=== PATIENT | female | born 1960 | race Caucasian/White ===

== ENCOUNTER → 2023-05-22 08:49 | Outpatient (REF) | payer BC, SELFPAY | LOC: WDC 08:49 | PROVIDERS: ATTENDING PHYSICIAN Physician Assistant Medical | DX: Z12.31 Encounter for screening mammogram for malignant neoplasm of breast (principal) | CPT/HCPCS: 77063; 77067 ==

== ENCOUNTER → 2024-05-26 09:00 | Outpatient (REF) | payer OTHER, SELFPAY | LOC: WDC 09:00 | PROVIDERS: ATTENDING PHYSICIAN Physician Assistant Medical | DX: Z12.31 Encounter for screening mammogram for malignant neoplasm of breast (principal) | CPT/HCPCS: 77063; 77067 ==

== ENCOUNTER 2024-06-25 06:22 | Day surgery (SDC) | payer OTHER, SELFPAY | END 2024-06-25 09:50 | disposition home or self-care (01) | LOC: GI 06:22 | PROVIDERS: ATTENDING PHYSICIAN Internal Medicine Gastroenterology | DX: Z12.11 Encounter for screening for malignant neoplasm of colon (principal); D12.0 Benign neoplasm of cecum; D12.2 Benign neoplasm of ascending colon; D12.3 Benign neoplasm of transverse colon; K63.5 Polyp of colon; K91.81 Other intraoperative complications of digestive system; K56.2 Volvulus; K62.1 Rectal polyp; Z86.0100 Personal history of colon polyps, unspecified; Z80.0 Family history of malignant neoplasm of digestive organs; K64.0 First degree hemorrhoids | CPT/HCPCS: 45385; 45380; 45381; 88305 ==

== ENCOUNTER 2025-01-28 08:21 | Inpatient (IN) | payer OTHER, SELFPAY ==
[2025-01-27] VITALS (17 sets, daily range): BP systolic 95–120; BP diastolic 52–82; BMI 29.9
[2025-01-27] MEDS: NITROSTAT (SUBLINGUAL) 0.4 MG SL ×2 (20:04→20:29)
[2025-01-27 20:13] LABS: Hematocrit 36.6 % (37.0-47.0); Hemoglobin 11.6 g/dL (12.0-16.0); Mean Corp Hgb Conc. 31.7 g/dL (33.0-37.0); Mean Corpuscular Volume 82.2 fL (81.0-99.0); Nucleated Red Blood Cells % 0 %; Platelet Count 305 10^3/uL (130-400); Red Cell Dist. Width 15.9 % (11.5-14.5)
--- NOTE | 2025-01-27 20:21 | ED.GENMED ---
History of Present Illness
General
Chief Complaint: Chest Pain
Source: patient
Exam Limitations: none
Time Seen by Provider: 01/27/25 20:07
Nursing documentation reviewed up to this point in time: agreed with
History of Present Illness
History of Present Illness:
Patient with history of hypertension and daily smoker, presents ED secondary to sudden onset of chest pain, while she was at home this afternoon around 2 PM watching TV. Chest pain described as pressure, with associated pressure in her upper back,
without any alleviating or exacerbating factors. Since onset, patient states that her chest pressure progressed became more severe, along with diaphoresis and shortness of breath. Patient was evaluated urgent care center with family called 911.
When paramedics arrived, initial EKG revealed possible ST segment elevation. Patient was given 325 mg aspirin. In addition, patient provided with 2 tablets of sublingual nitroglycerin, with improvement chest pain. At the time of evaluation ED,
patient reports 2 out of 10 chest pain, with improvement. Patient's recent travel history includes overseas travel to the [place] in November 2024. Denies leg pain or swelling. Denies previous history of chest pain. Denies history of blood
clots. Denies family history of heart disease. Denies recent illness. Denies recent change in medications or diet.
Review of Systems
Review of Systems
Allergies reviewed?: Yes
All Other Systems: ROS reviewed and negative except as documented in HPI and ROS
Constitutional: Reports no symptoms
Respiratory: Reports trouble breathing
Cardiac: Reports chest pain and diaphoresis
ABD/GI: Reports no symptoms; Denies nausea or vomiting
Musculoskeletal: Reports no symptoms
Skin: Reports no symptoms
Neurological: Reports no symptoms
Phy Exam
Physical Exam
Physical Exam:
Physical Exam
General: mild distress, not acutely ill. afebrile
Head: nc/at. eomi
Neck: supple. no meningeal signs.
Heart: s1/s2 regular rate and rhythm. no murmur
Lungs: no acute respiratory distress. clear bilaterally
Abdomen: normal bowel sounds. not tender.
Neuro: alert and oriented x 3. no focal neurological deficits
Skin: no rash
Psychiatric: well kept. interactive and cooperative
Extremities: LE b/l nonpitting edema. no calf tenderness.
Scores
Heart Score for Chest Pain Patients
STEMI patient?: No
History: Moderately Suspicious
ECG: Significant ST-Depression
Age: >/= 65 years
Risk Factors: 1 or 2 Risk Factors
Troponin: >1 - <3 x Normal Limit
Heart Score for Chest Pain Patients: 7
Heart Score Risk: 72.7 % MACE over next 6 weeks
Course
Orders/Labs/Results
Orders:
Orders
01/27/25 19:59
CXR [CR Chest Portable - 1 View] Stat
Comment:
Reason For Exam: chest pain
Reason Study Needs to be Portable: Unable to Transport
01/27/25 20:02
Nitroglycerin 100 mg/250 ml [Nitroglycerin Premix] 100 mg in 250 ml .ROUTE .STK-MED
01/27/25 20:05
Electrocardiogram (*1) Urgent
Reason for Study: Chest Pain
Cardiac Monitoring- Treatment ONCE
EKG- Treatment ONCE
IV Insert/Care/Rem.- Treatment PRN
01/27/25 20:06
Complete Blood Count/With Diff Urgent
Comprehensive Metabolic Panel Urgent
D-Dimer Urgent
Glycohemoglobin (HgbA1c) Urgent
NT-proBNP Urgent
Comment: ADD ON
PTT Urgent
Comment: ADD ON
Troponin I Urgent
01/27/25 20:07
Nitroglycerin Sublingual [Nitrostat (Sublingual)] 0.4 mg SL NOW STA
01/27/25 20:15
Heparin 4,000 units IV NOW STA
Heparin 61172 Units/250 ml 25,000 units in 250 ml IV PER PROTOCOL
Weight to be used for heparin protocol in kilograms (kg):: 81.5
Protocol:: Cardiac Tx/Acute Coronary
PTT Goal Range to be used:: PTT 73 to 111 seconds
Order type:: Initial
INITIAL Infusion Dose (UNITS/KG/hr) & then follow protocol:: 12 units/kg/hr
Infusion Dose in UNITS/hr & then follow protocol (UNITS/hr):: 1,000
INFUSION RATE in mL/hr & then follow protocol (mL/hr):: 10
PTT less than or equal to 64 seconds:: Increase rate by 200 units/hr (+ 2 mL/hr)
PTT 64.1 to 72.9 seconds:: Increase rate by 100 units/hr (+ 1 mL/hr)
PTT 73 to 111 seconds:: Target Range. No change in rate.
PTT 111.1 to 130.9 seconds:: Decrease rate by 100 units/hr (- 1 mL/hr)
PTT 131 to 199.9 seconds:: HOLD for 1 hr. Then decrease rate by 200 units/hr (- 2 mL/hr)
PTT greater than or equal to 200 seconds:: HOLD for 2 hrs & Notify Provider. Then decrease by 200 units/hr (-
2 mL/hr)
Lab follow-up:: Each change, PTT q6h until 2 consecutive are therapeutic. Then PTT
daily.
Nursing to Place Non Medication Order As Directed
Physician Order: PTT 6 hours after initial start of Heparin infusion
Above order entered?: Yes
01/27/25 20:16
Nitroglycerin Sublingual [Nitrostat (Sublingual)] 0.4 mg SL NOW STA
01/27/25 20:23
Ticagrelor [Brilinta] 180 mg PO ONCE ONE
01/27/25 20:30
Nitroglycerin 100 mg/250 ml [Nitroglycerin Premix] 100 mg in 250 ml IV PER PROTOCOL
Initial dose in mcg/min, then titrate:: 25
Titrate to keep:: Chest Pain Free
Titrate by mcg/min:: 5 mcg/min, may increase by 10 mcg/min if dose > 20 mcg/min
Frequency of titrations (minutes):: every 3-5 minutes
Maximum dose in mcg/min:: 200
Begin to taper infusion when:: Remained at goal for 2hrs
Taper by mcg/min:: 5 mcg/min
Frequency of taper (minutes) if patient maintains goal:: 30
Taper to off?: Yes
If infusion off & no longer maintaining goal:: Contact Provider
01/27/25 20:35
Ondansetron Injectable [Zofran] 4 mg IV NOW STA
01/27/25 20:36
Ondansetron Injectable [Zofran] 4 mg .ROUTE .STK-MED ONE
01/27/25 20:43
Morphine Sulfate 2 mg .ROUTE .STK-MED ONE
Morphine Sulfate 2 mg IV NOW STA
01/27/25 20:52
Electrocardiogram (*1) Urgent
Reason for Study: Chest Pain
EKG- Treatment ONCE
01/27/25 21:34
Metoprolol [Lopressor] 12.5 mg PO NOW STA
01/27/25 21:43
0.9% Sodium Chloride 250 ml [Nss] 250 ml IV BOLUS
01/27/25 21:47
Admit/Transfer Patient As Directed
Co-Sign Provider:
Level of Care: Observation services
Assign to:: IVU
Physician / Group: Irene Leone
Diagnosis: NSTEMI
PRN Pain Medication Management As Directed
May give lesser potent ordered pain med per pt: Yes
preference::
Protocol:: Medication orders for pain may be administered in a
manner that supports deferring to patient preference
when the pt is:
- Requesting an ordered lesser potent pain medication.
Least to most potent pain medications are defined
as: acetaminophen < NSAID < tramadol < opioids
(morphine, oxycodone, hydromorphone).
- Requesting a lesser dose of the same medication IF
ORDERED.
- Requesting a less intrusive route of administration
if both routes are prescribed by the provider (PO <
IV).
01/27/25 21:48
Code Status As Directed
Resuscitation Status: Full Code
01/27/25 23:45
Electrocardiogram (*1) Q3H
Reason for Study: Chest Pain
Comment: at admission and Q3H for total of 3, to be done with each troponin
Troponin I Q3H
Comment: at admit & Q3H for 3 total including ED draws, obtain ECG with each level
01/27/25 23:45
Echo 2D MMode Color/Doppler Routine
Reason for Study: chest pain
CARDIOLOGY CONSULT Routine
Consulting Provider: Odin Adam
Was physician already notified: Yes
Activity As Directed
Activity Level: Ambulate
INT (Intravenous Needle Therapy) As Directed
Comment: maintain peripheral IV access
Intake/ Output As Directed
Frequency: Per unit guidelines
Vital Signs As Directed
Frequency: q4h
Weight As Directed
Frequency: Once
Comment: on admission
Pulse Ox/spot Check [RESP] Routine
Quantity: 1
Special Instructions: on admission and then every shift if on oxygen
01/28/25 02:45
Electrocardiogram (*1) Q3H
Reason for Study: Chest Pain
Comment: at admission and Q3H for total of 3, to be done with each troponin
01/28/25 02:51
Cardiovascular Evaluation IN AM
PTT Urgent
Troponin I Q3H
Comment: at admit & Q3H for 3 total including ED draws, obtain ECG with each level
01/28/25 05:45
Electrocardiogram (*1) Q3H
Reason for Study: Chest Pain
Comment: at admission and Q3H for total of 3, to be done with each troponin
Troponin I Q3H
Comment: at admit & Q3H for 3 total including ED draws, obtain ECG with each level
01/28/25 Breakfast
NPO
Allow oral meds: Yes
Allow clear liquids: 4hrs prior to procedure
Comment: may have unrestricted clear liquid up to 4 hrs prior to scheduled procedure
Abnormal Lab Results
01/27/25
20:06
WBC 13.4 H 10^3/uL
(4.8-10.8)
Hgb 11.6 L g/dL
(12.0-16.0)
Hct 36.6 L %
(37.0-47.0)
MCH 26.1 L pg
(27.0-31.0)
MCHC 31.7 L g/dL
(33.0-37.0)
RDW 15.9 H %
(11.5-14.5)
Abs Immat Gran (auto) 0.1 H 10^3/uL
(0-0.05)
Absolute Neuts (auto) 8.3 H 10^3/uL
(1.4-6.5)
Absolute Lymphs (auto) 4.0 H 10^3/uL
(1.2-3.4)
Absolute Monos (auto) 0.8 H 10^3/uL
(0.1-0.6)
D-Dimer 0.54 H ug/mlFEU
(0.00-0.50)
BUN 21 H mg/dl
(7-17)
Glucose 145 H mg/dl
(70-99)
Troponin I 0.407 H* ng/ml
01/27/25 20:06
01/27/25 20:06
Vital Signs
Initial and Last Documented VS:
Initial Vital Signs
Pulse Resp BP Pulse Ox
73 18 99/52 94
01/27/25 19:56 01/27/25 19:56 01/27/25 19:56 01/27/25 19:56
Last Documented Vital Signs
Temp Pulse Resp BP Pulse Ox
98.4 F 70 14 89/63 98
01/27/25 23:45 01/28/25 01:30 01/28/25 00:01 01/28/25 01:30 01/28/25 00:01
MDM/Problems Addressed
MDM/Problems Addressed:
Prehospital EKG reviewed revealing minimal anterior lead ST segment elevation along with ST depression in inferior leads. Chest pain rapidly improved with nitroglycerin given prehospital. Repeat EKG upon arrival in the ED reveals normal ST
segment, but with continual ST depression on inferior leads. EKG reviewed by on-call Slotter Operator Helper attending, Dr. Garcia, via [place] text. Does not feel that EKG meets STEMI criteria for emergent cath at this time. However, does agree that patient's
presenting symptoms are concerning for ACS. As such, recommends appropriate treatment, including nitroglycerin infusion, Brilinta, along with heparin infusion. Dr. Garcia to be contacted again, if there are any clinical changes or EKG changes.
Otherwise, patient will be admitted to the hospitalist service for further evaluation and treatment.
Chest pain continues to improve, and resolved after morphine 2 mg IV. Initial troponin noted and discussed with Dr. Garcia. Plan to proceed with hospitalist admission for medical treatment tonight
Critical care statement: A total of 60 minutes of critical care time was provided for this patient. This includes management of unstable vital signs, evaluation of the patient at bedside, reviewing the patient's pertinent medical records, discussion
with consultants, review of old EKGs and review of pertinent medical records. This time with separate from time utilized to perform the aforementioned documented procedures
*Pulse Oximetry
SaO2: 94
Nasal Cannula flow liters per minute: 2
Patient hypoxic: no
*EKG
Interpreted by ED Provider?: Yes
EKG Intrepretation Date: 01/27/25
Heart Rate: 68
Rate: normal
Rhythm: sinus
[place]: normal axis
Interval: normal interval
Ischemia: ST depression
*Critical Care Note
Total Time (30-74mins, 75-104mins- exclusive of procedures): 60 min
ED Attending Note
-
Portions of this chart may have been created with voice recognition software.� Occasional wrong word or��sound alike� substitutions may have occurred due to the inherent limitations of voice recognition software.
Discharge Plan
Departure
Patient Disposition: Admit
Date of Disposition: 01/27/25
Time of Disposition: 21:03
Admit to: IVU
Presentation/result/management discussed w/ accepting MD/DO: Hospitalist
Discharge Problem:
Non-ST elevation DE (NSTEMI)
Interventions
Interventions:
*Risk Screen - Suicide Last Done: 01/27/25 19:56
*General Assessment Last Done: 01/27/25 19:56
*Neglect/Abuse Screening Last Done: 01/27/25 19:56
*ED- Fall Risk Assessment Last Done: 01/27/25 19:56
*ED COVID-19 Vaccine History Last Done: 01/27/25 19:56
*ED Influenza Vaccine History Last Done: 01/27/25 19:56
*Nursing Disposition Last Done: 01/28/25 00:01
ED- Cardiac Assessment Last Done: 01/27/25 20:10
Discharge Date and Time
Discharge Date/Time: 01/28/25 00:03
[2025-01-27 20:25] LABS: D-Dimer 0.54 ug/mlFEU (0.00-0.50)
[2025-01-27] MEDS: NITROSTAT (SUBLINGUAL) SL (20:27)
[2025-01-27] MEDS: HEPARIN 25000 UNITS/250 ML IV (20:27)
[2025-01-27] MEDS: HEPARIN 4000 UNITS IV (20:30)
[2025-01-27] MEDS: BRILINTA 180 MG PO (20:31)
[2025-01-27] MEDS: NITROGLYCERIN PREMIX 250 IV (20:33)
[2025-01-27 20:36] LABS: ALT (SGPT) 21 U/L (0-35); AST (SGOT) 23 U/L (14-36); Albumin 4.3 g/dl (3.5-5.0); Alkaline Phosphatase 90 U/L (38-126); Blood Urea Nitrogen 21 mg/dl (7-17); Calcium 9.9 mg/dl (8.4-10.2); Carbon Dioxide 25 mmol/L (22-30); Chloride 107 mmol/L (98-107); Estimated Creatinine Clearance 99 ml/min; Glucose 145 mg/dl (70-99); Potassium 4.2 mmol/L (3.5-5.1); Sodium 140 mmol/L (135-145); Total Protein 7.0 g/dl (6.3-8.2); eGFR > 60.00
[2025-01-27] MEDS: ZOFRAN 4 MG IV (20:37)
[2025-01-27] MEDS: MORPHINE SULFATE 2 MG IV (20:45)
[2025-01-27 20:47] LABS: Troponin I 0.407 ng/ml
--- NOTE | 2025-01-27 21:01 | W.PN.UPDATE ---
Addendum entered and electronically signed by Irene Leone MD 01/27/25 22:52:
SBP up to 120's - will order low dose Metoprolol
pain (upper back burning) had gone up to 6 now down to [address] Garcia updated.
Original Note:
Update Note
Progress Note Update
This is an addendum to H&P written by MOUNTER SAXOPHONES Tere Lin
I saw and examined the patient.
The MOUNTER SAXOPHONES's note was reviewed and I agree with the note.
Comment:
Ms. Anna Stoner is a 64 yo woman with hx essential HTN, daily smoker presents to the ER with mid upper back pain that occurred after getting ready to go out. Pain was accompanied by nausea and diaphoresis. She was initially seen at urgent care
with EKG showing possible YULIA s/p Aspirin 325mg PO x 1 and subL Nitro x 2 with improvement in pain. Currently patient describes more right sided upper back scapular pain that is 0-1 in intensity and has some tenderness to palpation.
Triage VS: P 73, RR 18, BP 99/52, SpO2 94%
On exam patient is AAO x 3, conversant, calm; CV: S1, S2, RRR; Chest clear; Abdomen soft, non-tender, no LE Swelling. Right upper back with area of increased discomfort with palpation.
LABS: WBC 13.4, Hg 11.6, PLT 305, Na 140, K+ 4.2, Cl 107, BUN 21, Cr 0.6, Glucose 145, T. Bili 0.5, AST 23, ALT 21, Trop 0.407, BNP 64.5
EKG NSR @ 74, abnl T wave inferior leads; slight ST E V2
CXR
IMPRESSION:
1. Mild acute interstitial cardiogenic pulmonary edema.
2. Moderate elevation of the right hemidiaphragm.
MAR: IV Heparin gtt, IV nitro gtt, IV Zofran, Brilinta
NSTEMI
-pain atypical location but associated with diaphoresis/ nausea and occurred after exerting herself to get ready. It was responsive to Nitro.
-prehospital EKG with minimal anterior lead YULIA with ST depression in inferior leads. She was given Asa 325mg and Nitro with triage EKG showing normal ST segment. Case discussed between ER physician and on-call [employer] Employee, Dr. Garcia. No need
for emergent cath this evening
-admit to IVU
-continue IV Heparin gtt
-IV Nitro gtt
-aspirin, Brilinta
-NPO after MN
-cardiology consult
-given SBP low 100's, patient has some dizziness will give low bolus; hold off on b-tom this evening to allow room for nitro drip
Essential HTN
-hold INSPECTOR TESTER SORTER Lisinopril for now to allow room in BP for nitro and possible addition of b-tom tomorrow
DVT PPx Heparin gtt
FULL CODE
76 minutes spent on patient care
--- NOTE | 2025-01-27 21:04 | HPS.HSE ---
Family Physician
-
Family Physician: Yoselyn Obrien
Chief Complaint
-
back tightness
History of Present Illness
Patient is a 64-year-old female with past medical history significant for hypertension, hyperlipidemia and asthma who presented to [facility] ED for evaluation at recommendation of Urgent Care. Patient reports that she went upstairs to change for dinner
and when she finished and got back downstairs she did not feel so well. She states she had tightness across her upper back, became diaphoretic with nausea. She denies ever having symptoms like this before. Family took her to Urgent Care where she
was refered to ED for further evaluation. Urgent care called EMS, initial EKG revealed possible ST segment elevation, she was given aspirin 325mg along with 2 tablets of sublingual nitorglycerin.
Medical History
Past Medical History
Past Medical History: Reports Other
Additional Past Medical History:
hypertension
hyperlipidemia
asthma
Past Surgical History: Reports Other
Additional Past Surgical History:
discectomy (05/2005)
appendectomy (age 17)
Tonsillectomy
Colon polyps - colonoscopy with biopsy
Social History
Tobacco: Smoker (current every day smoker 0.5-.075 packs per day, with approximate 30 pack year history )
Alcohol: Occasional
Drug: None
Employment: Retired
Family History
Family History: Not pertinent
Allergies / Home Medications
Allergies reflects when Allergies were last updated in [facility].
Home Medications with original date entered in [facility]
Allergy/Medication List:
Allergies
Allergy/AdvReac Type Severity Reaction Status Date / Time
adrenal cortex (porcine) Allergy Unknown Verified 01/27/25 20:22
prednisone Allergy Unknown Verified 01/27/25 20:22
Home Medications
lisinopril 5 mg tablet 5 mg PO DAILY 01/27/25
multivitamin 1 tab PO DAILY 01/27/25
naproxen 500 mg tablet 500 mg PO BID PRN pain 01/27/25
Review of Systems
-
History Source: Patient
Constitutional: Denies Fever or Chills
EENT: Denies Sore Throat
Respiratory: Denies Cough or Trouble Breathing
Cardiac: Reports Chest Pain (denies chest pain, reports upper back tightness ) and Diaphoresis; Denies Palpitations or Syncope
Abdomen/GI: Reports Nausea; Denies Abdominal Pain, Vomiting or Diarrhea
: Denies Dysuria, Frequency or Urgency
Skin: Denies Rash
Neurological: Denies Dizzy, Headache, Weakness or Numbness
Hematologic/Lymphatic: Denies Bleeding
Physical Exam
Vital Signs
Vital Signs
Pulse Resp BP Pulse Ox
73 18 123/72 94
01/27/25 19:56 01/27/25 19:56 01/27/25 20:29 01/27/25 20:23
Physical Exam
General: Well Developed, Well Nourished, No Apparent Distress, Comfortable, Conversant and Obese
HEENT: NormoCephalic, Moist mucous membranes, PERRLA, Nose Appears Normal and Ears Appear Normal
Respiratory: Clear and Non Labored Respirations
Cardiac: S1/S2 and Regular Rhythm; No Murmur or Peripheral Edema
GI: Soft, Non Tender, Non Distended and Normal Bowel Sounds
Musculoskeletal: No Clubbing, No Cyanosis and No Edema
Skin: Warm and IV/Catheter Site
Neuro: Awake and AO x 3
Psych: Calm and Intact Judgment/Insight
Laboratory Results
-
01/27/25 20:06
01/27/25 20:06
Laboratory Results
APTT Cancelled 01/27/25 20:15
Total Bilirubin 0.5 mg/dl (0.2-1.3) 01/27/25 20:06
AST 23 U/L (14-36) 01/27/25 20:06
ALT 21 U/L (0-35) 01/27/25 20:06
Alkaline Phosphatase 90 U/L (38-126) 01/27/25 20:06
Troponin I 0.407 ng/ml H* 01/27/25 20:06
Data Reviewed
-
Diagnostic Radiology: Report Reviewed by me (CXR: 1. Mild acute interstitial cardiogenic pulmonary edema. 2. Moderate elevation of the right hemidiaphragm.)
Medical Tests (Nuc Med, Echo, EKG etc): Report Reviewed by me (KG: NORMAL SINUS RHYTHM LEFT AXIS DEVIATION MINIMAL VOLTAGE CRITERIA FOR LVH, MAY BE NORMAL VARIANT ( R in aVL ) SEPTAL INFARCT (CITED ON OR BEFORE 27-Jan-2025))
Lab Data: Labs Reviewed by me (WBC 13.4, hgb 11.6, hct 36.6, d-dimer 0.54, trop 0.407)
Impression/Plan
-
IMPRESSION/PLAN:
#upper back tightness, diaphoresis and nausea 2/2 NSTEMI vs. STEMI vs. injury
initial EKG (EMS) revealed possible ST segment elevation
WBC 13.4, hgb 11.6, hct 36.6, d-dimer 0.54, trop 0.407
CXR: 1. Mild acute interstitial cardiogenic pulmonary edema.
2. Moderate elevation of the right hemidiaphragm.
EKG: NORMAL SINUS RHYTHM
LEFT AXIS DEVIATION
MINIMAL VOLTAGE CRITERIA FOR LVH, MAY BE NORMAL VARIANT ( R in aVL )
SEPTAL INFARCT (CITED ON OR BEFORE 27-Jan-2025)
- Admit to IVU
- Consult Cardiology
- trend troponin
- ECHO
- heparin gtt
- nitro gtt
#hypertension
- hold lisinopril
#hyperlipidemia
#asthma
Code status: full code
DVT prophlyaxis: heparin gtt
[2025-01-27 21:06] LABS: APTT 30.0 Sec (23.4-35.0)
[2025-01-27] MEDS: NSS 250 IV (21:51)
[2025-01-27] MEDS: LOPRESSOR 12.5 MG PO (23:16)
[2025-01-28] VITALS (44 sets, daily range): BP systolic 78–122; BP diastolic 47–91; BMI 29.4
[2025-01-28 01:05] LABS: Troponin I 1.590 ng/ml
--- NOTE | 2025-01-28 01:08 | PTCARENOTE ---
Received pt from ED @ 9837. Pt AAOx3. BP 115/77, HR 110s-70s, O2 98% on Rm Air, Temp 98.4, Resp 18-- NSR on monitor. Heparin gtt running through Rt AC @ 1000 units/hr and nitro gtt running through left AC @ 95 mcg/min. Rates chest pain 0 @ this
time. EKG completed. Discussed plan of care. Pt agrees to call RN with worsening chest pain and when needs OOB. Discussed plan for Q3H trops and EKG, and remaining NPO. Pt verbalizes understanding. Call almaraz within reach.
[2025-01-28] MEDS: MAGNESIUM SULFATE 50 IV (02:39)
[2025-01-28] MEDS: MORPHINE SULFATE 2 MG IV (02:53)
[2025-01-28] MEDS: NSS 500 IV (02:55)
--- NOTE | 2025-01-28 03:05 | PTCARENOTE ---
Addendum entered by Luiza Minor RN 01/28/25 03:14:
Pressures starting to rise-- currently 93/58. Chest pain resolved.
Original Note:
Pt BP began to drop-- 80s/50s-- titrated nitro gtt down to 55 mcg/min and chest pain began to return (05/17). Pt also had a symptomatic 5 bt run V-tach--felt palpitations. Discussed with Axel Cortes (CV PA) and Umm Garcia ([employer]). 2 mg IV morphine, 2
G magnesium sulfate, 500mL IV fluid bolus ordered and given-- see MAR. EKG and labs obtained.
[2025-01-28 03:28] LABS: APTT 73.9 Sec (23.4-35.0)
[2025-01-28 03:33] LABS: HDL Cholesterol 64 mg/dl; LDL Cholesterol, Calculated 117 mg/dl; Very Low Density Lipoprotein 16 mg/dl (0-30)
[2025-01-28 03:47] LABS: Troponin I 4.510 ng/ml
--- NOTE | 2025-01-28 06:38 | PTCARENOTE ---
Pt continues to have 2/10 chest pain on 55 mcg/min of nitro. Tolerated IV fluid bolus well-- BP increased to 90s/60s. Pt had 13 bt run of PVCs-- symptomatic-- felt discomfort during run.
[2025-01-28 06:43] LABS: Troponin I 11.000 ng/ml
--- NOTE | 2025-01-28 07:27 | CON.CAR ---
Addendum entered and electronically signed by Odin Vigil MD 01/28/25 10:19:
Attending addendum: Patient seen and examined this am. Waxing and waning chest pain last evening with persistent discomfort this morning after getting out of bed and walking to restroom. Troponin increased to 11 ng/ml this am. She continues to
experience low grade discomfort
Physical Exam
GEN: AAO x 3.��No acute distress
HEENT:��NC/AT, sclera are anicteric, hearing and nares are normal.
LUNGS: Clear to bases bilaterally.��No wheezing or rhonchi
CV: Regular rate and rhythm.��Normal S1/S2.��No S3, No S4.��Murmur: None
ABD : Soft, NT, ND, No HSM.��Bowel sounds are present.
EXT: No CCE
NEURO: No focal neurologic deficits��
IMPRESSION:
-Evolving NSTEMI with recurring chest pain and elevated troponin
-Hx of hypertension
-Hyperlipidemia
-Elevated glucose on admission
RECOMMENDATIONS:
-Patient will be referred for immediate angiography and possible coronary intervention.
- Continue aspirin and ticagrelor
- High intensity statin therapy
- Risk and benefit of of catheterization have been explained to patient
- Will continue to trend serial troponin levels
- Dual antiplatelet therapy
- Further management decisions will be made after the angiogram is completed
- Will need echocardiogram
Original Note:
Consultation
Consultation Request
Date/Time Consultation Requested: 01/27/2025, 2348
Date/Time Consultation Performed: 01/28/2025, 3988
Requesting Provider: NELSON Farfan
Performing Provider: NELSON Escoto
Reason for Consultation: back pain,elevated troponin
Medical History
-
Chief Complaint: Back pain
History of Present Illness:
64-year-old female with history of hypertension, hyperlipidemia, asthma, current smoker presented to [facility] ED from urgent care. Prior to presentation she developed tightness across her upper back, diaphoresis, and nausea a after walking up steps.
She went to urgent care where EKG revealed possible ST elevation she was given aspirin and 2 sublingual nitros and sent to the ED. back pain 8 out of 10 upon presentation to ED and described as squeezing sensation. No chest pain or shortness of
breath.
ED evaluation: Troponin 0.407. EKG: Normal sinus rhythm septal Q waves, nonspecific ST T wave abnormality. Chest x-ray Mild acute interstitial cardiogenic pulmonary edema.
NA 140, K4.2, BUN/creatinine 21/0.6, proBNP 64.5
FLP: LDL 117, HDL 64, triglyceride 80, total cholesterol 197
Patient started on heparin and nitro drip and loaded with Brilinta. NTG titrated up to 90 mcg/min for pain relief but decreased to 55 due to low blood pressure..
Troponin trending up and most recently 11. Patient still having 2-3 out of 10 right sided back pain
Past medical history:
Hypertension
Current smoker
Hyperlipidemia
Asthma
Told she has a murmur
Past Medical History
Past Medical History: Other (As above)
Past Surgical History: Other (Discectomy 05/2005, appendectomy, tonsillectomy, colon polyps, )
Social History
Tobacco: Smoker (0.5 to 0.75 packs/day [id number] smoking history)
Alcohol: Occasional
Drug: None
Employment: Retired
Allergies / Home Medications
Allergy/AdvReac Type Severity Reaction Status Date / Time
adrenal cortex (porcine) Allergy Unknown Verified 01/27/25 20:22
prednisone Allergy Unknown Verified 01/27/25 20:22
�Medication �Instructions �Recorded �Confirmed �Type
lisinopril 5 mg tablet 5 mg PO DAILY 01/27/25 01/27/25 History
multivitamin 1 tab PO DAILY 01/27/25 01/27/25 History
naproxen 500 mg tablet 500 mg PO BID PRN pain 01/27/25 01/27/25 History
Review of Systems
-
History Source: Patient
All other systems: Negative unless noted
Physical Exam
Vital Signs
Temp Pulse Resp BP Pulse Ox
98.5 F 67 20 99/61 95
01/28/25 06:41 01/28/25 06:30 01/28/25 06:41 01/28/25 05:50 01/28/25 06:41
Lab Results
01/27/25 20:06
01/27/25 20:06
Troponin I 11.000 ng/ml H* D 01/28/25 05:52
Tko-C-Qvlqiddjinc Pept 64.5 pg/ml 01/27/25 20:06
GEN: No distress, awake, Ox3
HEENT: supple, anicteric, mmm
LUNGS: CTA, no wheezes/rales
CV: Reg, S1/S2, no murmur
ABD: soft, BS+, NT/ND
EXT: No edema
NEURO: Gross non-focal
SKIN: No rash
Impression / Plan
-
PCP: Yoselyn Pierre
No cardiology
Impression:
Back pain
Elevated troponin
EKG abnormality
Hypertension
Hyperlipidemia
Current smoker
Previous cardiovascular testing: None
Plan:
64-year-old female with hypertension, hyperlipidemia, smoker, asthma presents with 8/10 back pain with associated diaphoresis and nausea, troponin uptrending to 11, has received sublingual nitro, morphine for pain and currently on heparin and nitro
drip currently at 55 mcg but still having 2-3 out of 10 back pain. Hypotension limits further up titration, BP 90s/50s. Loaded with Brilinta in ED and started on metoprolol.
Current EKG: Normal sinus rhythm, anteroseptal Q waves, inferior ST depressions, questionable lateral ST elevation
- Left heart cath today
- Keep n.p.o.
- Echo today
- Trend troponin
- Start statin
- Lisinopril on hold due to hypotension
-Telemetry personally viewed: Normal sinus rhythmOccasional PVCs, PACs
-smoking cessation
Data Reviewed
-
EKG: Tracing Personally Visualized and interpreted
Labs: Labs Reviewed by me
[2025-01-28] MEDS: LOW STRENGTH ASPIRIN 81 MG PO (07:46)
[2025-01-28] MEDS: LOPRESSOR 12.5 MG PO (07:46)
[2025-01-28] MEDS: BRILINTA PO (07:51)
--- NOTE | 2025-01-28 08:21 | PTCARENOTE ---
In report , then walking rounds patient continues throughout the night having chest pain, and runs of V tach, and her morning troponin is 11. chest pain is a 3 out of 10 in chest and right side radiating to back, patient is on IV nitroglycerin @
55mcg or 18.3cc/hr and IV heparin @ 1000untis/hr via right ac. BP is 90/63, HR 67. TT hospitalist, handle rounder operator, all are aware. Dr. Vigil at bedside, didn't give am Brilinta as per Dr. Vigil since patient received loading dose. am medications
given as per hospitalist. to label folder .
[2025-01-28 09:25] LABS: ACT-LR - POC 345 Seconds (116-155)
[2025-01-28 09:50] LABS: ACT-LR - POC 382 Seconds (116-155)
[2025-01-28 09:52] LABS: Troponin I 17.300 ng/ml
--- NOTE | 2025-01-28 10:19 | ITS.CL.CATH ---
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
Cardiac Catheterization
Procedure Report:
LEFT HEART CATH AND CORONARY INTERVENTION
Date of Procedure: January 28, 2025
Referring: [facility] Emergency Department
PROCEDURES:
1. Left heart catheterization with coronary and single-plane left ventriculography
2. Successful stenting of ostial to mid LAD with overlapping 3.0 x 22 mm and 2.5 x 38 mm Lebanon stents that were implanted at nominal pressures and postdilated with a 2.5 and 3.0 mm noncompliant balloon
3. Intravascular ultrasound
INDICATION: This is a 64-year-old female with a past medical history notable for hypertension and hyperlipidemia as well as tobacco use smoking about 4 to 5 cigarettes on most days. She presented to an urgent care center for evaluation of
substernal chest pressure and was referred to [facility] emergency department. Her symptoms improved with IV nitroglycerin in no marked ST elevation was noted on her electrocardiogram. She became chest pain-free but her troponin levels
became modestly elevated and she developed recurring chest tightness this morning when she ambulated from her bed to the restroom. She is now referred for emergent coronary angiography.
ACCESS: Right radial artery, 6 Ukrainian sheath
HEMODYNAMICS (mmHg):
AO (s/d, m) : 102/69
LV (s/d) : 115/22
LVEDP : 38
CORONARY FINDINGS
Dominance: Right
LEFT MAIN: Normal
LEFT ANTERIOR DESCENDING: The LAD arises normally from the left main and is subtotally occluded proximally just before the first septal toolmaker grade three. There is sluggish antegrade flow into the mid LAD and the diagonal branch.
CIRCUMFLEX: The circumflex is a medium caliber vessel with supplies a very proximally arising OM1 that courses in a distribution typical for a ramus intermedius. There is a 40% stenosis in OM1. The circumflex otherwise supplies several small
obtuse marginal branches.
RIGHT CORONARY: The right coronary artery has a dominant vessel. There is a 40-50% distal RCA stenosis and 50% stenosis at the crux of the RCA. The PDA is small and tortuous but widely patent. The posterolateral branch is widely patent.
Collaterals are noted to fill the LAD and a [id number] fashion
VENTRICULOGRAPHY: A low volume hand-injection ventriculogram was performed. The mid to distal anterior and anterolateral sevilla are hypokinetic. The ejection fraction is visually estimated at 30%
ANGIOPLASTY PROCEDURE DETAIL: Upon review of the diagnostic catheterization films the decision was made to proceed with percutaneous revascularization of the subtotally occluded proximal LAD stenosis. There was BRANDY I flow into the distal vessel.
The origin of the left main was cannulated with a 6 Ukrainian XB 3 guide. A BMW guidewire was advanced across the stenotic segment in the LAD and into the distal vessel. Balloon predilation was performed with a 2 mm balloon restoring antegrade flow.
It was noted that the BMW guidewire was in a sizable diagonal branch and a second BMW guidewire was obtained and directed to the LAD with a moderate degree of difficulty. A 3.0 x 22 mm Lebanon stent was then positioned with angiographic and
fluoroscopic guidance. The stent was deployed at nominal pressures. Haziness was noted at the distal edge of the stent and there was a significant stepdown on the distal edge of the stent in an HOLLEY view. The decision was made to position an
overlapping stent to cover the step down on the stent distal anterior and atherosclerotic segment in the mid LAD. A 2.5 x 38 mm Clint stent was then positioned overlapping it distal to the initial stent. Cover the entire stenotic segment and was
deployed at nominal pressures. Intravascular ultrasound was then performed. The apical LAD was shown to be a very small caliber vessel. The more distal stent was well-approximated and the proximal stent was a little underexpanded. At this point
the distal stent was postdilated to high pressures with a 2.5 mm noncompliant balloon while the more proximal stent was postdilated with a 3.0 mm noncompliant balloon at 16 kelechi proximally and 12 kelechi at the area of stent overlap
SEDATION: 15 minutes of procedural sedation was utilized. An independent medical administrative assistant was present to assist with and help manage the patient's level of consciousness and physiologic status
RADIATION SUMMARY: Fluoro Time (min): 17.3, Dose (mGy): 1208, DAP (Gy.cm2) : 70.5
CONCLUSIONS
1. Evolving non-ST elevation myocardial infarction involving the LAD. Overlapping 3.0 x 22 mm and 2.5 x 38 mm stents were implanted from the proximal to mid LAD and postdilated distally with a 2.5 mm noncompliant balloon and proximally with a 3.0
mm noncompliant balloon
2. Elevated LVEDP
3. LV dysfunction with a visually estimated ejection fraction of 30%
RECOMMENDATIONS
1. Uninterrupted dual antiplatelet therapy
2. Aggressive secondary risk modification with high intensity statin and blood pressure control
3. Will check an echocardiogram
4. Patient will need medical therapy for dilated ischemic cardiomyopathy
5. She should have repeat echocardiogram at 90 days post revascularization to reassess LVEF
Copy to: Dr. Odin Vigil
--- NOTE | 2025-01-28 10:20 | PTCARENOTE ---
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 monitor shows NSR, VSS, IVF infusing as ordered. call almaraz within reach.
[2025-01-28 10:31] LABS: Glycohemoglobin (HgbA1c) 5.8 % (4.0-5.9)
--- NOTE | 2025-01-28 12:26 | CM ---
Addendum entered by Joyce Adams 01/28/25 14:49:
Telephone call to [facility] and her Ticagrelor is ready for pick-up.
Original Note:
Reviewed chart. Met with Mrs. Stoner and her sin to review discharge plans. She states prior to admission she resides with her son in a three story townhouse with two steps to enter. She states she has a full flight of steps to get to bedroom/full
bathroom. She states she has a powder room on the first floor. She states prior to admission she was independent with ambulation and adls. She states she does not have any DME in the home. She has a prescription plan with [employer] and uses [facility]. Telephone call to [employer] prescription plan , ([phone]) to check co-pay for Brilinta 90 0mg po bid. Her co-pay for the brand Brilinta 90 mg po bid is $297.94 for a ninety day supply and for Ticagrelor 90 po mg po bid her co-pay is
$83.51 for ninety days. Reviewed co-pay with her. She is agreeable to the co-pay. Telephone call to [facility] to see if they have Ticagrelor 90 mg po in stock, [facility] has it in stock. PULPER OPERATOR sent script [facility]. Medical work-up in progress. The
discharge plan is to return home withher son when medically stable.
[2025-01-28] MEDS: ZOFRAN 4 MG IV (12:30)
--- NOTE | 2025-01-28 12:34 | PTCARENOTE ---
patient c/o feeling nauseated, TT Dr. Lowery, zofran IV given as ordered.
[2025-01-28] MEDS: FLUSH (NSS) 1 FLUSH IV (13:29)
[2025-01-28 16:09] LABS: Troponin I 121.000 ng/ml
--- NOTE | 2025-01-28 16:16 | PTCARENOTE ---
troponin 121, TT Dr. Vigil, will obtain another troponin in 6 hours.
--- NOTE | 2025-01-28 16:43 | W.PN.HOSP.TC ---
Today's Communication/Plan
-
see outlined plan below
Assessment / Plan
Assessment / Plan
Assessment:
NSTEMI
- s/p urgent cath 01/28: Overlapping 3.0 x 22 mm and 2.5 x 38 mm stents were implanted from the proximal to mid LAD and postdilated distally with a 2.5 mm noncompliant balloon and proximally with a 3.0 mm noncompliant balloon
- continue ASA/Brilinta/Statin
- continue BB
- follow trops to peak
- DCA Cards following
Ischemic cardiomyopathy
- Echo: The matthew-septum, inferoseptum, apex and mid-distal anterior wall and inferior wall segments are severly hypokinetic/akinetic. The estimated ejection fraction is 50% by volumetric assessment but is visually estimated 30-35% with regional
wall motion abnormalities as listed. Aortic valve is trileaflet. No evidence of aortic regurgitation. Mild mitral valve regurgitation. Mild tricuspid regurgitation. Estimated pulmonary artery pressure of 26 mmHg assuming a right atrial pressure of 3
mmHg.
Essential HTN
- continue BB
- holding RICK
HLD - statin
Current smoker
- smoking cessation counselling
DVT ppx: SCDs
Code: Full
Anticipated Discharge: > 48 hours
Subjective/Interval History
-
Date of Service: January 28, 2025
late entry, patient had chest pain earlier in AM and then underwent urgent cath with LAD stenting
Trop at 121
currently chest pain free
Objective Data
-
Labs:
Laboratory Results
01/28/25
08:50
APTT Cancelled
Vital Signs:
Vital Signs
Temp Pulse Resp BP Pulse Ox
98.7 F 70 20 109/76 95
01/28/25 15:00 01/28/25 14:00 01/28/25 15:00 01/28/25 13:00 10/24/25 15:00
I&O
01/27/25 01/28/25 01/29/25
06:59 06:59 06:59
Intake Total 600 / 600
Balance 600 / 600
Physical Exam
-
General: No Apparent Distress
HEENT: Normocephalic and Atraumatic
Respiratory: Negative Wheezes
Cardiac: Regular Rhythm and S1/S2
GI: Soft and Nontender
Musculoskeletal: No Edema
Neuro: AO x 3
Psych: Calm
Data Reviewed
-
Total Time Spent with Patient (in minutes): 42
Labs: Labs Reviewed by me
[2025-01-28] MEDS: LIPITOR 80 MG PO (17:38)
[2025-01-28] MEDS: BRILINTA 90 MG PO (19:19)
--- NOTE | 2025-01-28 19:38 | PTCARENOTE ---
Received pt at change of shift resting in bed. SR on tele, HR 90's. pt denies any CP or SOB at this time. R radial site C/D/I, no bleeding or hematoma noted at this time. SCD's applied to pt, fall risk precautions maintained, encouraged pt to call
RN for assistance ambulating--pt verbalizes understanding. Call almaraz within reach.
[2025-01-28 23:08] LABS: Troponin I 64.400 ng/ml
[2025-01-29] VITALS (9 sets, daily range): BP systolic 84–125; BP diastolic 58–79; BMI 29.0
[2025-01-29] MEDS: ANESTHETIC LOZENGE 1 LOZENGE PO (01:58)
[2025-01-29 04:34] LABS: Blood Urea Nitrogen 10 mg/dl (7-17); Calcium 9.0 mg/dl (8.4-10.2); Carbon Dioxide 22 mmol/L (22-30); Chloride 111 mmol/L (98-107); Estimated Creatinine Clearance 97 ml/min; Glucose 108 mg/dl (70-99); HDL Cholesterol 56 mg/dl; LDL Cholesterol, Calculated 107 mg/dl; Potassium 3.9 mmol/L (3.5-5.1); Sodium 139 mmol/L (135-145); Very Low Density Lipoprotein 30 mg/dl (0-30); eGFR > 60.00
[2025-01-29 04:38] LABS: Hematocrit 33.8 % (37.0-47.0); Hemoglobin 10.7 g/dL (12.0-16.0); Mean Corp Hgb Conc. 31.7 g/dL (33.0-37.0); Mean Corpuscular Volume 81.4 fL (81.0-99.0); Platelet Count 255 10^3/uL (130-400); Red Cell Dist. Width 16.1 % (11.5-14.5)
[2025-01-29 04:54] LABS: Troponin I 48.300 ng/ml
--- NOTE | 2025-01-29 07:23 | W.PN.CARDCBS ---
Addendum entered and electronically signed by Jagjit Oliveira MD 01/29/25 08:34:
I saw and examined the patient.
The LOGGING EQUIPMENT OPERATOR or PA's note was reviewed and I agree with the note.
Comment: General: Well developed, well nourished in NAD.
Neck: Supple, no JVD, HJR, carotids +2 B/L, no bruits bilaterally.
Heart: Non displaced PMI, RRR, no murmurs, No S3, S4, no rubs.
Lungs: Clear to auscultation bilaterally, no wheeze, rhonchi, rubs bilaterally,
normal expiratory phase.
Extremities: No clubbing, cyanosis or edema bilaterally.
Neuro: Grossly nonfocal, awake, alert and oriented x3.
She is doing well. She remains tachycardic. Will change Lopressor to Coreg given reduced ejection fraction. Eventually restart outpatient dose of lisinopril if blood pressure tolerates. Continue to follow in the hospital given large OK and
tachycardia.
Original Note:
Today's Communication / Plan
-
Troponin peaked at 121 and EF is now reduced to 30 to 35%
Changed Lopressor to Coreg today
Will attempt to restart outpatient dose of lisinopril 5 mg daily tomorrow pending BMP and BP
Continue aspirin and ticagrelor
Planning for discharge on Friday, no ventricular arrhythmia on telemetry
Impression / Plan
-
PCP: Yoselyn Pierre
Cardiology: None prior to admission
Impression:
Admitted with chest and back pain 01/27/2025
NSTEMI, peak Troponin 121
CAD s/p overlapping 3 mm and 2.5 mm Clint JAMES to the LAD 01/28/2025
ICM EF 30% by echo 01/28/2025
Elevated LVEDP at 38 by cardiac cath 01/28/2025
HTN
Hyperlipidemia
Current smoker
Echo 01/28/2025: EF 30 to 35%, anteroseptum, inferoseptum, apex and mid-distal anterior wall and inferior wall segments are severely hypokinetic/akinetic, mild MR, mild TR with PAP 26 mmHg
Plan:
-Patient came to the ER chest and back pain that were relieved with nitro gtt and pain returned with ambulating to the bathroom, troponin elevated at 0.407 on admission and peaked at 121. Patient was taken to the [facility].
-Initial troponin 0.407 and then peaked at 121. EF is reduced at 30 to 35% with WMA. This is a presumed ischemic CM
-Patient was taken to the [facility] and had overlapping 3 mm and 2.5 mm Clint JAMES to the LAD 01/28/2025
-New to aspirin and Brilinta. Appreciate help of CM on checking cost of Brilinta versus ticagrelor, patient's co-pay for a 90-day supply of ticagrelor is about $83 and she is agreeable to this, her local [facility] has this in stock.
-LDL 107 and patient is new to atorvastatin 80 mg daily, labs reviewed by me
-Cardiac rehab has been consulted
-ECG reviewed by me on 01/29/2025 looks like there is now an RBBB with sinus tachycardia. Recheck ECG in a.m., ordered by me.
-Telemetry reviewed by me and no evidence of ventricular arrhythmia
-Change Lopressor to Coreg 6.25 mg BID starting 01/29/2025, orders placed by me
-VS reviewed by me, HR is 106, changing Lopressor to Coreg as noted above and will uptitrate as BP tolerates.
-BP 112/72, if stable will add back outpatient dose of lisinopril 5 mg daily on 01/30/2025
-EF 30 to 35% by echo and the LVEDP was 38. Patient has a pulse ox of 97% on RA. Patient was not taking loop diuretic prior to admission
-Smoking cessation recommended, patient was smoking 5 cigarettes a day
-Plan is for admission through the weekend
HPI: 64-year-old female with hypertension, hyperlipidemia, smoker, asthma presents with 8/10 back pain with associated diaphoresis and nausea, troponin uptrending to 11, has received sublingual nitro, morphine for pain and currently on heparin and
nitro drip currently at 55 mcg but still having 2-3 out of 10 back pain. Hypotension limits further up titration, BP 90s/50s. Loaded with Brilinta in ED and started on metoprolol.
Progress Note - Preparer
Subjective
Date of Service: January 29, 2025
No chest pain
Objective
Labs:
01/29/25 04:11
01/29/25 04:05
Labs
Hgb 10.7 g/dL (12.0-16.0) L 01/29/25 04:11
Hct 33.8 % (37.0-47.0) L 01/29/25 04:11
Plt Count 255 10^3/uL (130-400) 01/29/25 04:11
APTT Cancelled 01/28/25 08:50
Sodium 139 mmol/L (135-145) 01/29/25 04:05
Potassium 3.9 mmol/L (3.5-5.1) 01/29/25 04:05
BUN 10 mg/dl (7-17) 01/29/25 04:05
Creatinine 0.5 mg/dL (0.6-1.0) L 01/29/25 04:05
Glucose 108 mg/dl (70-99) H 01/29/25 04:05
Troponins
01/27/25 01/28/25 01/28/25
20:06 00:15 02:51
Troponin I 0.407 H* 1.590 H* D 4.510 H* D
01/28/25 01/28/25 01/28/25
05:52 09:13 15:07
Troponin I 11.000 H* D 17.300 H* D 121.000 H* D
01/28/25 01/28/25 01/28/25
16:30 22:00 22:30
Troponin I Cancelled Cancelled Cancelled
01/28/25 01/29/25
22:33 04:04
Troponin I 64.400 H* D 48.300 H*
Vital Signs and I&O:
Vital Signs
Temp Pulse Resp BP Pulse Ox
97.9 F 130 18 125/64 93
01/29/25 03:54 01/29/25 07:00 01/29/25 03:54 01/29/25 03:54 01/29/25 03:54
Vital Signs
Temp Pulse Resp BP Pulse Ox
97.9 F 130 18 125/64 93
01/29/25 03:54 01/29/25 07:00 01/29/25 03:54 01/29/25 03:54 01/29/25 03:54
Intake & Output
01/27/25 01/28/25 01/29/25 01/30/25
06:59 06:59 06:59 06:59
Intake Total 960 / 960
Balance 960 / 960
Physical Exam
Physical Exam
GEN: NAD. AAOx3
LUNGS: RA. No wheeze.
CV: SR/ST on tele.
Scores
BRANDY for NSTEMI
Age >/= 65: Yes
>/=3 CAD risk factors-HTN,High Chol,Fam hx CAD,DM,Smoker: Yes
Known CAD (stenosis >/=50%): No
ASA use in past 7 days: No
Severe angina (>/= 2 episodes in 24 hrs): Yes
EKG ST Changes >/= 0.5mm: No
Positive cardiac marker: Yes
Score: 4
Risk at 14 days-mortality, new/recurrent OK, severe ischemia: Intermediate Risk- 20% Risk at 14 days- all cause mortality, new or recurrent OK, or severe recurrent ischemia requiring urgent revascularization
[2025-01-29] MEDS: LOW STRENGTH ASPIRIN 81 MG PO (07:34)
[2025-01-29] MEDS: COREG 6.25 MG PO ×2 (07:34→19:40)
[2025-01-29] MEDS: BRILINTA 90 MG PO ×2 (07:34→19:39)
[2025-01-29] MEDS: FLUSH (NSS) 1 FLUSH IV (07:35)
--- NOTE | 2025-01-29 09:45 | PTCARENOTE ---
The patient stated that she felt 'a little off'. I explained to her the side effects of her Coreg this morning and asked her to report any changes in how she was feeling. Her BP was 103/74 with a HR of 91. She stated that that was low for her and
her BP was usually in the 140s. I explained to her that it may take some time for her body to adjust to the new medication and lower BPs. We reviewed the medication side effect and important things to know in her CAD booklet. I asked her to ring the
call almaraz and wait for assistance when she needs to get oob or the chair. She stated that she would.
--- NOTE | 2025-01-29 10:16 | W.PN.HOSP.TC ---
Today's Communication/Plan
-
add Coreg; monitor vitals
continue DAPT/Statin
Assessment / Plan
Assessment / Plan
Assessment:
NSTEMI
- s/p urgent cath 01/28: Overlapping 3.0 x 22 mm and 2.5 x 38 mm stents were implanted from the proximal to mid LAD and postdilated distally with a 2.5 mm noncompliant balloon and proximally with a 3.0 mm noncompliant balloon
- trop peaked at 121
- continue ASA/Brilinta/Statin
- continue Coreg
- Cardiac rehab eval
- DCA Cards following
Ischemic cardiomyopathy
- Echo: The matthew-septum, inferoseptum, apex and mid-distal anterior wall and inferior wall segments are severly hypokinetic/akinetic. The estimated ejection fraction is 50% by volumetric assessment but is visually estimated 30-35% with regional
wall motion abnormalities as listed. Aortic valve is trileaflet. No evidence of aortic regurgitation. Mild mitral valve regurgitation. Mild tricuspid regurgitation. Estimated pulmonary artery pressure of 26 mmHg assuming a right atrial pressure of 3
mmHg.
- continue Coreg
- consider resuming RICK if BP allows
Essential HTN
- continue Coreg
- consider resuming RICK if BP allows
HLD - statin
Current smoker
- smoking cessation counselling
DVT ppx: SCDs
Code: Full
Anticipated Discharge: > 48 hours
Subjective/Interval History
-
Date of Service: January 29, 2025
feels slightly dizzy with BP around 103 - reports baseline 140s
denies chest pains or SOB
Coreg added today by Cardiology
Objective Data
-
Labs:
Laboratory Results
01/29/25 01/29/25
04:05 04:11
WBC 10.6
Hgb 10.7 L
Hct 33.8 L
Plt Count 255
Sodium 139
Potassium 3.9
Chloride 111 H
Carbon Dioxide 22
BUN 10
Creatinine 0.5 L
Glucose 108 H
Calcium 9.0
Vital Signs:
Vital Signs
Temp Pulse Resp BP Pulse Ox
97.7 F 91 18 103/74 97
01/29/25 07:24 01/29/25 09:43 01/29/25 07:24 01/29/25 09:43 01/29/25 07:24
I&O
01/28/25 01/29/25 01/30/25
06:59 06:59 06:59
Intake Total 960 / 960
Balance 960 / 960
Physical Exam
-
General: No Apparent Distress
HEENT: Normocephalic and Atraumatic
Respiratory: Negative Wheezes
Cardiac: Regular Rhythm and S1/S2
GI: Soft and Nontender
Musculoskeletal: No Edema
Neuro: AO x 3
Psych: Calm
Data Reviewed
-
Total Time Spent with Patient (in minutes): 41
Labs: Labs Reviewed by me
[2025-01-29] MEDS: LIPITOR 80 MG PO (17:57)
[2025-01-29] MEDS: MIRALAX 17 GRAMS PO (22:09)
--- NOTE | 2025-01-29 22:53 | PTCARENOTE ---
Pt rec'd at change of shift awake,alert with no c/o pain. right radial site with DDI, no bleeding or hematoma noted. Pt reports no bm since ; new order obtained from [facility] ORTH[facility] TECH for Miralax, dose given. Pt did report having a small bm just
prior to Miralax.
[2025-01-30 04:48] VITALS: BP 92/62
--- NOTE | 2025-01-30 04:53 | PTCARENOTE ---
Came into pts room to get am labs pt stated at around 0200 'I was breathing almost like panting shallow-not sure if I was dreaming'. happened at 0200 but pt can't be sure she was awake or dreaming. Monitor reviewed but no ectopy noted during the
night
[2025-01-30 04:59] VITALS: BMI 28.8
[2025-01-30 05:16] LABS: Hematocrit 31.9 % (37.0-47.0); Hemoglobin 10.5 g/dL (12.0-16.0); Mean Corp Hgb Conc. 32.9 g/dL (33.0-37.0); Mean Corpuscular Volume 78.0 fL (81.0-99.0); Platelet Count 231 10^3/uL (130-400); Red Cell Dist. Width 15.8 % (11.5-14.5)
[2025-01-30 06:16] LABS: Blood Urea Nitrogen 15 mg/dl (7-17); Calcium 9.2 mg/dl (8.4-10.2); Carbon Dioxide 24 mmol/L (22-30); Chloride 110 mmol/L (98-107); Estimated Creatinine Clearance 97 ml/min; Glucose 102 mg/dl (70-99); Potassium 4.0 mmol/L (3.5-5.1); Sodium 135 mmol/L (135-145); eGFR > 60.00
[2025-01-30 06:52] VITALS: BP 103/67
--- NOTE | 2025-01-30 08:33 | W.PN.CARDCBS ---
Today's Communication / Plan
-
Stable cardiology status status post large anterior wall IA
Continue Coreg
Unable to add RICK inhibitor given borderline blood pressure
Impression / Plan
-
PCP: Yoselyn Pierre
Cardiology: None prior to admission
Impression:
Admitted with chest and back pain 01/27/2025
NSTEMI, peak Troponin 121
CAD s/p overlapping 3 mm and 2.5 mm [place] JAMES to the LAD 01/28/2025
ICM EF 30% by echo 01/28/2025
Elevated LVEDP at 38 by cardiac cath 01/28/2025
HTN
Hyperlipidemia
Current smoker
Echo 01/28/2025: EF 30 to 35%, anteroseptum, inferoseptum, apex and mid-distal anterior wall and inferior wall segments are severely hypokinetic/akinetic, mild MR, mild TR with PAP 26 mmHg
Plan:
She is doing okay at present status post large anterior wall IA with ejection fraction of 30 to 35%
She is tolerating Coreg with improved heart rate
Unable to add RICK inhibitor at present given borderline blood pressure
Advised to continue to refrain from smoking
Case management checking on cost of Brilinta
Probable discharge on 10 am
HPI: 64-year-old female with hypertension, hyperlipidemia, smoker, asthma presents with 8/10 back pain with associated diaphoresis and nausea, troponin uptrending to 11, has received sublingual nitro, morphine for pain and currently on heparin and
nitro drip currently at 55 mcg but still having 2-3 out of 10 back pain. Hypotension limits further up titration, BP 90s/50s. Loaded with Brilinta in ED and started on metoprolol.
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
Subjective
Date of Service: January 30, 2025
No complaints
Objective
Labs:
01/30/25 04:55
01/30/25 04:55
Labs
Hgb 10.5 g/dL (12.0-16.0) L 01/30/25 04:55
Hct 31.9 % (37.0-47.0) L 01/30/25 04:55
Plt Count 231 10^3/uL (130-400) 01/30/25 04:55
APTT Cancelled 01/28/25 08:50
Sodium 135 mmol/L (135-145) 01/30/25 04:55
Potassium 4.0 mmol/L (3.5-5.1) 01/30/25 04:55
BUN 15 mg/dl (7-17) 01/30/25 04:55
Creatinine 0.6 mg/dL (0.6-1.0) 01/30/25 04:55
Glucose 102 mg/dl (70-99) H 01/30/25 04:55
Troponins
01/27/25 01/28/25 01/28/25
20:06 00:15 02:51
Troponin I 0.407 H* 1.590 H* D 4.510 H* D
01/28/25 01/28/25 01/28/25
05:52 09:13 15:07
Troponin I 11.000 H* D 17.300 H* D 121.000 H* D
01/28/25 01/28/25 01/28/25
16:30 22:00 22:30
Troponin I Cancelled Cancelled Cancelled
01/28/25 01/29/25
22:33 04:04
Troponin I 64.400 H* D 48.300 H*
Vital Signs and I&O:
Vital Signs
Temp Pulse Resp BP Pulse Ox
98.7 F 89 20 92/62 96
01/30/25 06:58 01/30/25 04:48 01/30/25 06:58 01/30/25 04:48 01/30/25 06:58
Vital Signs
Temp Pulse Resp BP Pulse Ox
98.7 F 89 20 92/62 96
01/30/25 06:58 01/30/25 04:48 01/30/25 06:58 01/30/25 04:48 01/30/25 06:58
Intake & Output
01/28/25 01/29/25 01/30/25 01/31/25
06:59 06:59 06:59 06:59
Intake Total 960 / 960 240 / 240
Balance 960 / 960 240 / 240
Physical Exam
Physical Exam
General: Well developed, well nourished in NAD.
Neck: Supple, no JVD, HJR, carotids +2 B/L, no bruits bilaterally.
Heart: Non displaced PMI, RRR, no murmurs, No S3, S4, no rubs.
Lungs: Clear to auscultation bilaterally, no wheeze, rhonchi, rubs bilaterally,
normal expiratory phase.
Extremities: No clubbing, cyanosis or edema bilaterally.
Neuro: Grossly nonfocal, awake, alert and oriented x3.
[2025-01-30] MEDS: BRILINTA 90 MG PO ×2 (08:45→19:35)
[2025-01-30] MEDS: LOW STRENGTH ASPIRIN 81 MG PO (08:46)
[2025-01-30] MEDS: COREG 6.25 MG PO ×2 (08:46→19:35)
[2025-01-30 11:00] VITALS: BP 90/67
--- NOTE | 2025-01-30 11:35 | PTCARENOTE ---
received patient this am, patient stated, 'I feel better.' monitor shows NSR, VSS. right radial dsg. D/I, distal pulse palpable. patient up OOB , had shower.
--- NOTE | 2025-01-30 13:54 | W.PN.HOSP.TC ---
Today's Communication/Plan
-
monitor today
dc in 24 hours likely
Assessment / Plan
Assessment / Plan
Assessment:
NSTEMI
- s/p urgent cath 01/28: Overlapping 3.0 x 22 mm and 2.5 x 38 mm stents were implanted from the proximal to mid LAD and postdilated distally with a 2.5 mm noncompliant balloon and proximally with a 3.0 mm noncompliant balloon
- trop peaked at 121
- continue ASA/Brilinta/Statin
- continue Coreg
- Cardiac rehab eval
- [facility] Cards following
Ischemic cardiomyopathy
- Echo: The matthew-septum, inferoseptum, apex and mid-distal anterior wall and inferior wall segments are severly hypokinetic/akinetic. The estimated ejection fraction is 50% by volumetric assessment but is visually estimated 30-35% with regional
wall motion abnormalities as listed. Aortic valve is trileaflet. No evidence of aortic regurgitation. Mild mitral valve regurgitation. Mild tricuspid regurgitation. Estimated pulmonary artery pressure of 26 mmHg assuming a right atrial pressure of 3
mmHg.
- repeat Echo in 3 months
- continue Coreg
- consider resuming RIKC if BP allows
Essential HTN
- continue Coreg
- consider resuming RICK if BP allows
HLD - statin
Current smoker
- smoking cessation counselling
DVT ppx: SCDs
Code: Full
Anticipated Discharge: Within 24 hours
Subjective/Interval History
-
Date of Service: January 30, 2025
no chest pain
resting comfortably
Objective Data
-
Labs:
Laboratory Results
01/30/25
04:55
WBC 9.3
Hgb 10.5 L
Hct 31.9 L
Plt Count 231
Sodium 135
Potassium 4.0
Chloride 110 H
Carbon Dioxide 24
BUN 15
Creatinine 0.6
Glucose 102 H
Calcium 9.2
Vital Signs:
Vital Signs
Temp Pulse Resp BP Pulse Ox
97.5 F 79 20 90/67 98
01/30/25 11:00 01/30/25 12:00 01/30/25 11:00 01/30/25 11:00 01/30/25 11:00
I&O
01/29/25 01/30/25 01/31/25
06:59 06:59 06:59
Intake Total 960 / 960 240 / 240
Balance 960 / 960 240 / 240
Physical Exam
-
General: No Apparent Distress
HEENT: Normocephalic and Atraumatic
Respiratory: Negative Wheezes
Cardiac: Regular Rhythm and S1/S2
GI: Soft and Nontender
Neuro: AO x 3
Psych: Calm
Data Reviewed
-
Total Time Spent with Patient (in minutes): 41
Labs: Labs Reviewed by me
[2025-01-30 14:55] VITALS: BP 90/52
[2025-01-30] MEDS: LIPITOR 80 MG PO (17:47)
[2025-01-30 19:18] VITALS: BP 119/70
--- NOTE | 2025-01-30 20:17 | PTCARENOTE ---
Pt rec'd oob in recliner chair knitting a baby blanket. No c/o cp or sob. Sinus on telemetry. Right radial site intact.
[2025-01-30 22:16] VITALS: BP 94/63
[2025-01-31 04:45] VITALS: BP 152/139
[2025-01-31 04:53] VITALS: BMI 28.7
--- NOTE | 2025-01-31 05:08 | PTCARENOTE ---
Pt remains sinus, free of cp and sob. No c/o dizziness.
[2025-01-31 05:28] LABS: Blood Urea Nitrogen 17 mg/dl (7-17); Calcium 9.2 mg/dl (8.4-10.2); Carbon Dioxide 24 mmol/L (22-30); Chloride 109 mmol/L (98-107); Estimated Creatinine Clearance 97 ml/min; Glucose 110 mg/dl (70-99); Potassium 4.0 mmol/L (3.5-5.1); Sodium 135 mmol/L (135-145); eGFR > 60.00
[2025-01-31 07:22] VITALS: BP 88/48
[2025-01-31 07:24] VITALS: BP 95/67
--- NOTE | 2025-01-31 08:41 | W.PN.CARDCBS ---
Today's Communication / Plan
-
Decrease Coreg
Hopeful discharge later today
Cardiac rehab
Outpatient cardiac follow-up has been arranged
Impression / Plan
-
PCP: Yoselyn Pierre
Cardiology: None prior to admission
Impression:
Admitted with chest and back pain 01/27/2025
NSTEMI, peak Troponin 121
CAD s/p overlapping 3 mm and 2.5 mm [place] JAMES to the LAD 01/28/2025
ICM EF 30% by echo 01/28/2025
Elevated LVEDP at 38 by cardiac cath 01/28/2025
HTN
Hyperlipidemia
Current smoker
Echo 01/28/2025: EF 30 to 35%, anteroseptum, inferoseptum, apex and mid-distal anterior wall and inferior wall segments are severely hypokinetic/akinetic, mild MR, mild TR with PAP 26 mmHg
Plan:
- status post large anterior wall SD with ejection fraction of 30 to 35%
- on Coreg 6.25 mg bid but lower BPs 90s/50s and complaining of wooziness/dizziness this a.m. Will reduce dose to 3.125 mg twice daily.
-check repeat EKG
- Unable to add RICK inhibitor at present given borderline blood pressure
-LDL 107 and patient is new to atorvastatin 80 mg daily,
-Advised to continue to refrain from smoking
-Case management checked on cost of Brilinta-affordable and patient will continue
-Check outpatient echo in 3 months to reassess EF on GDMT
-Cardiac rehab
-Outpatient cardiac follow-up has been arranged
-Telemetry reviewed: Normal sinus rhythm 80s
-Discharge later today as long as 'whoozy'symptoms improve
Discussed with nursing and hospitalist
HPI: 64-year-old female with hypertension, hyperlipidemia, smoker, asthma presents with 8/10 back pain with associated diaphoresis and nausea, troponin uptrending to 11, has received sublingual nitro, morphine for pain and currently on heparin and
nitro drip currently at 55 mcg but still having 2-3 out of 10 back pain. Hypotension limits further up titration, BP 90s/50s. Loaded with Brilinta in ED and started on metoprolol.
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
Subjective
Date of Service: January 31, 2025
c/o whooziness' this am, felt better yesterday
No chest pain or shortness of breath
Objective
Labs:
01/30/25 04:55
01/31/25 04:50
Labs
Hgb 10.5 g/dL (12.0-16.0) L 01/30/25 04:55
Hct 31.9 % (37.0-47.0) L 01/30/25 04:55
Plt Count 231 10^3/uL (130-400) 01/30/25 04:55
APTT Cancelled 01/28/25 08:50
Sodium 135 mmol/L (135-145) 01/31/25 04:50
Potassium 4.0 mmol/L (3.5-5.1) 01/31/25 04:50
BUN 17 mg/dl (7-17) 01/31/25 04:50
Creatinine 0.6 mg/dL (0.6-1.0) 01/31/25 04:50
Glucose 110 mg/dl (70-99) H 01/31/25 04:50
Troponins
01/28/25 01/28/25 01/28/25
09:13 15:07 16:30
Troponin I 17.300 H* D 121.000 H* D Cancelled
01/28/25 01/28/25 01/28/25
22:00 22:30 22:33
Troponin I Cancelled Cancelled 64.400 H* D
01/29/25
04:04
Troponin I 48.300 H*
Vital Signs and I&O:
Vital Signs
Temp Pulse Resp BP Pulse Ox
98.8 F 95 18 94/63 96
01/31/25 07:21 01/31/25 04:43 01/31/25 07:21 01/30/25 22:16 01/31/25 07:21
Vital Signs
Temp Pulse Resp BP Pulse Ox
98.8 F 95 18 94/63 96
01/31/25 07:21 01/31/25 04:43 01/31/25 07:21 01/30/25 22:16 01/31/25 07:21
Intake & Output
01/29/25 01/30/25 01/31/25 02/01/25
06:59 06:59 06:59 06:59
Intake Total 960 / 960 240 / 240 240 / 240
Balance 960 / 960 240 / 240 240 / 240
Physical Exam
Physical Exam
GEN: No distress, awake, Ox3
HEENT: supple, anicteric, mmm
LUNGS: CTA, no wheezes/rales
CV: Reg, S1/S2, no murmur
ABD: soft, BS+, NT/ND
EXT: No edema
NEURO: Gross non-focal
SKIN: No rash
--- NOTE | 2025-01-31 09:05 | W.PN.HOSP.TC ---
Today's Communication/Plan
-
dc to home later today. d/w Cards service and RN
Assessment / Plan
Assessment / Plan
Assessment:
NSTEMI
- s/p urgent cath 01/28: Overlapping 3.0 x 22 mm and 2.5 x 38 mm stents were implanted from the proximal to mid LAD and postdilated distally with a 2.5 mm noncompliant balloon and proximally with a 3.0 mm noncompliant balloon
- trop peaked at 121
- continue ASA/Brilinta/Statin
- continue Coreg; reduce dose to 3.125mg BID due to dizziness
- Cardiac rehab evaluation
- [facility] Cards follow up outpatient
Ischemic cardiomyopathy
- Echo: The matthew-septum, inferoseptum, apex and mid-distal anterior wall and inferior wall segments are severly hypokinetic/akinetic. The estimated ejection fraction is 50% by volumetric assessment but is visually estimated 30-35% with regional
wall motion abnormalities as listed. Aortic valve is trileaflet. No evidence of aortic regurgitation. Mild mitral valve regurgitation. Mild tricuspid regurgitation. Estimated pulmonary artery pressure of 26 mmHg assuming a right atrial pressure of 3
mmHg.
- repeat Echo in 3 months
- continue Coreg
- consider resuming RICK if BP allows
Essential HTN
- continue Coreg
- consider resuming RICK if BP allows
HLD - statin
Current smoker
- smoking cessation counselling
DVT ppx: SCDs
Code: Full
More than 30 minutes spent in discharge including
Final examination of the patient
Summarizing hospital stay
Instructions for continuing care to all relevant caregivers
Preparation of discharge records, prescriptions, and referral forms
Total time spent (in minutes): 41
Anticipated Discharge: Today
Subjective/Interval History
-
Date of Service: January 31, 2025
resting comfortably, some dizziness
no chest pain or SOB
Objective Data
-
Labs:
Laboratory Results
01/31/25
04:50
Sodium 135
Potassium 4.0
Chloride 109 H
Carbon Dioxide 24
BUN 17
Creatinine 0.6
Glucose 110 H
Calcium 9.2
Vital Signs:
Vital Signs
Temp Pulse Resp BP Pulse Ox
98.8 F 82 18 95/67 96
01/31/25 07:21 01/31/25 08:00 01/31/25 07:21 01/31/25 07:24 01/31/25 07:21
I&O
01/30/25 01/31/25 02/01/25
06:59 06:59 06:59
Intake Total 240 / 240 240 / 240
Balance 240 / 240 240 / 240
Physical Exam
-
General: No Apparent Distress
HEENT: Normocephalic and Atraumatic
Respiratory: Negative Wheezes
Cardiac: Regular Rhythm and S1/S2
GI: Soft
Musculoskeletal: No Edema
Neuro: AO x 3
Psych: Calm
Data Reviewed
-
Total Time Spent with Patient (in minutes): 42
Labs: Labs Reviewed by me
--- NOTE | 2025-01-31 09:06 | W.DCSUMMARY ---
Discharge Summary
Discharge Data
Date of Admission: 01/27/25
Date of Discharge: 01/31/25
-
Pending Results: No
Hospital Course
64 y/o F hx of HTN, HLD, smoking presented with acute tightness of the back, along with diaphoresis and nausea. EMS was called and patient received ASA and 2 tabs of nitro sublingually. Patient ruled in for NSTEMI and Nitro drip + heparin drip was
started. Trop peaked at 121. She underwent LHC on 01/28 with LAD stenting (2 stents). She was placed on Coreg/Statin/ASA/Brilinta. Echo showed matthew-septum, inferoseptum, apex and mid-distal anterior wall and inferior wall segments
hypokinesis/akinesis with EF 30-35%. She was discharged with plan to follow up with Cardiology in office and repeat Echo in 3 months. She will also be setup for cardiac rehab.
Discharge Plan
-
Patient Disposition: Home (Routine Discharge)
Discharge Diagnosis/Procedures: NSTEMI, s/p angioplasty and stent x2 to Left Anterior Descending artery on 01/28
Condition: Fair
Diet: Low Cholesterol and 2 Gram Sodium
Activity: As tolerated
Others Tests: repeat Echo in 3 months - Cardiology office will arrange
Other Services: Cardiac Rehab
Activity Restrictions/Additional Instructions:
monitor BP with logging of BP readings 3x/daily
Stand Alone Forms: DC Instructions- Cath/EP Lab
Referrals:
[facility] [Outside]
Referral Note: Cardiac Rehab Orientation appointment is on February@ 1:00pm.
The Cardiac Rehab gym is located on the first floor of the [facility].
Yoselyn Obrien PA [Family Provider, Family Practice] - in one week
Pati Vega CRNP [Specified Professional Personl, Cardiology] - 02/25/25 9:40 am
Additional Discharge Medication Instructions: stop NSAID use. Stop lisinopril.
Prescriptions:
New
ticagrelor 90 mg Tablet
90 mg PO BID Qty: 180 3RF
atorvastatin 80 mg Tablet
80 mg PO QPM Qty: 30 0RF
carvedilol 3.125 mg Tablet
3.125 mg PO BID Qty: 60 0RF
aspirin 81 mg Tablet,Chewable
81 mg PO DAILY Qty: 100 0RF
Continued
multivitamin Tablet
1 tab PO DAILY
Discontinued
lisinopril 5 mg tablet
5 mg PO DAILY
naproxen 500 mg Tablet
500 mg PO BID PRN (Reason: pain)
Discharge Orders:
Discharge Patient (As Directed); Ordered 01/31/25
Ordered By: Felix Lowery
Care Plan Goals
Care Plan Goals:
Problem: Readiness for enhanced knowledge related to diagnosis and treatment plan
Goal: Understand your diagnosis and treatment plan needs, including medications if applicable.
Instructions: Know your diagnosis, underlying causes and treatment plan options, including medications if applicable. Consult with your health care team to learn about your diagnosis and treatment plan, including medications if applicable.
Discharge Date and Time
Print Language: DANISH
[2025-01-31] MEDS: COREG 3.125 MG PO (09:23)
[2025-01-31] MEDS: BRILINTA 90 MG PO (09:23)
[2025-01-31] MEDS: LOW STRENGTH ASPIRIN 81 MG PO (09:23)
[2025-01-31] MEDS: COREG PO (09:26)
--- NOTE | 2025-01-31 09:38 | PTCARENOTE ---
EKG done as ordered. decreased Coreg po as ordered. explained to patient what Coreg is and side effects, patient verbalized understanding.
[2025-01-31 11:03] VITALS: BP 110/66
--- NOTE | 2025-01-31 11:51 | PTCARENOTE ---
D/C instructions given to patient and son, both verbalizes understanding. INT D/C'd, telemetry D/C'd, personal belongings packed and sent home with patient. D/C to home via wc accompanied by staff.
== END 2025-01-31 11:59 | disposition home or self-care (01) | DRG 322 ==
LOC: IVU 08:21
PROVIDERS: Nurse Practitioner; Nurse Practitioner Family; Physician Assistant Medical; ADMITTING PHYSICIAN Student in an Organized Health Care Education/Training Program; ATTENDING PHYSICIAN Internal Medicine; EMERGENCY PHYSICIAN Emergency Medicine; FAMILY PHYSICIAN Physician Assistant Medical; OTHER PHYSICIAN Internal Medicine Interventional Cardiology
PROC: 027035Z Dilation of Coronary Artery, One Artery with Two Drug-eluting Intraluminal Devices, Percutaneous Approach (ICD-10-PCS; 2025-01-28)
PROC: 4A023N7 Measurement of Cardiac Sampling and Pressure, Left Heart, Percutaneous Approach (ICD-10-PCS; 2025-01-28)
PROC: B2111ZZ Fluoroscopy of Multiple Coronary Arteries using Low Osmolar Contrast (ICD-10-PCS; 2025-01-28)
PROC: B240ZZ3 Ultrasonography of Single Coronary Artery, Intravascular (ICD-10-PCS; 2025-01-28)
PROC: B2151ZZ Fluoroscopy of Left Heart using Low Osmolar Contrast (ICD-10-PCS; 2025-01-28)
DX: I21.4 Non-ST elevation (NSTEMI) myocardial infarction (principal); I50.1 Left ventricular failure, unspecified; I11.0 Hypertensive heart disease with heart failure; F17.210 Nicotine dependence, cigarettes, uncomplicated; E78.5 Hyperlipidemia, unspecified; J45.909 Unspecified asthma, uncomplicated; Z86.0100 Personal history of colon polyps, unspecified; Z90.49 Acquired absence of other specified parts of digestive tract; I49.3 Ventricular premature depolarization; Z79.899 Other long term (current) drug therapy; Z88.8 Allergy status to other drugs, medicaments and biological substances; I25.10 Atherosclerotic heart disease of native coronary artery without angina pectoris
CPT/HCPCS: 71045; 80048; 80053; 80061; 83036; 83880; 84484; 85025; 85027; 85347; 85379; 85730; 92978; 93005; 93306; 93458; 96365; 96366; 96367; 96375; 99152; 99291; 99406; C1725; C1753; C1769; C1874; C1887; C1894; C9600; Q9967

== ENCOUNTER 2025-03-04 11:04 | Outpatient (RCR) | payer OTHER, SELFPAY | END 2025-03-04 23:59 | disposition home or self-care (01) | LOC: CRHB 11:04 | PROVIDERS: ATTENDING PHYSICIAN Internal Medicine Interventional Cardiology | DX: I25.10 Atherosclerotic heart disease of native coronary artery without angina pectoris (principal); I25.2 Old myocardial infarction (principal); I21.4 Non-ST elevation (NSTEMI) myocardial infarction (principal); Z95.5 Presence of coronary angioplasty implant and graft | CPT/HCPCS: G0422; G0423 ==

== ENCOUNTER 2025-04-06 11:49 | Outpatient (RCR) | payer OTHER, SELFPAY | END 2025-04-06 23:59 | disposition home or self-care (01) | LOC: CRHB 11:49 | PROVIDERS: ATTENDING PHYSICIAN Internal Medicine Interventional Cardiology | DX: I21.4 Non-ST elevation (NSTEMI) myocardial infarction (principal); I25.10 Atherosclerotic heart disease of native coronary artery without angina pectoris; Z95.5 Presence of coronary angioplasty implant and graft; I25.2 Old myocardial infarction | CPT/HCPCS: G0422; G0423 ==